=== PATIENT | female | born 1980 | race Caucasian/White ===

== ENCOUNTER 2024-02-02 18:04 | Emergency (ER) | payer OTHER, SELFPAY ==
[2024-02-02 18:06] VITALS: BP 116/73
--- NOTE | 2024-02-02 19:20 | ED.GENMED ---
History of Present Illness
<Marline Rodriguez PA-C - Last Filed: 02/03/24 00:36>
General
Chief Complaint: Throat Problem
Source: patient and records
Exam Limitations: none
Time Seen by Provider: 02/02/24 19:19
Nursing documentation reviewed up to this point in time: agreed with
Travel History
Have you had any contact with someone who has COVID-19?: No
Do you have any symptoms of coronavirus? Fever > 100 degrees, chills, cough, shortness of breath, sore throat, loss of taste or smell, muscle aches, or headache?: No
History of Present Illness
History of Present Illness:
This is a 43-year-old female with a past medical history of seizure disorder, migraines, PTSD, presenting emergency department today for throat pain for the past week. Patient states that she has seen ENT in the past for recurrent throat problems.
Patient states that she is unsure of what throat problems she has. Patient states that she thinks it may be an ulcer. Patient states that she is usually treated with what she thinks is prednisone for this and then she eventually had to have a
tonsillectomy because of this and has not had any problems with her throat after the tonsillectomy until now. Patient also notes some significant dysphagia because of pain. Patient states that even saliva swallowing will give her a lot of
discomfort. Patient denies any trouble breathing, chest pain. Patient denies any fevers or chills. Patient denies any nausea or vomiting. Patient does have a follow-up appointment scheduled on Monday with her ENT but she was in so much pain that
she could not wait until then.
Past History
<Marline Rodriguez PA-C - Last Filed: 02/03/24 00:36>
Past History
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
and hyperemesis )
ED Past Surgical History: Appendectomy, Brain (Left temporal lobectomy in January 2016 at [place] for uncontrolled epilepsy), Cholecystectomy and Other (Patient therapeutic D&E )
Social History
Tobacco: Non-smoker
Alcohol: None
Drug: None
Personal:
Living: with family
Employment: Employed (Bookkeeping/accounting)
Family History
Family History: Other (Noncontributory)
Review of Systems
<Marline Rodriguez PA-C - Last Filed: 02/03/24 00:36>
Review of Systems
All Other Systems: ROS reviewed and negative except as documented in HPI and ROS
Phy Exam
<BEATRICE Moran Last Filed: 02/03/24 00:36>
Physical Exam
Physical Exam:
Vitals: Patient's vitals are stable
General: Patient is well-appearing, in no acute distress
Skin: Warm and dry, no rashes or lesions
Head: Normocephalic, atraumatic
Eyes: EOMs intact, sclera nonicteric.
Throat: Uvula midline, surgically absent tonsils, no pharyngeal erythema.
Neck: Right sided anterior lymphadenopathy that is tender to palpation
Cardiac: Regular rate and rhythm, no murmurs
Pulm: Normal respiratory effort, no wheezes
Neuro: AAOx3. Cranial nerves II through XII intact.
Course
<Marline Rodriguez PA-C - Last Filed: 02/03/24 00:36>
Orders/Labs/Results
Orders:
Orders
02/02/24 19:57
CT Neck With Iv Contrast Urgent
Comment:
Reason For Exam: severe throat pain, dysphagia
02/02/24 19:59
IV Insert/Care/Rem.- Treatment PRN
0.9% Sodium Chloride 250 ml [Nss] 250 ml IV BOLUS
Dexamethasone Sod Phosphate [Decadron] 10 mg IV NOW STA
Ondansetron Injectable [Zofran] 4 mg IV NOW STA
Pantoprazole [Protonix IV] 40 mg IV NOW STA
02/02/24 20:33
Test Result ONCE
02/02/24 20:42
Complete Blood Count/With Diff Urgent
Comprehensive Metabolic Panel Urgent
HCG, Serum Qualitative Screen Urgent
02/02/24 20:46
0.9% Sodium Chloride 500 ml [Nss] 500 ml IV BOLUS
Abnormal Lab Results
02/02/24
20:42
MCH 32.1 H pg
(27.0-31.0)
Plt Count 453 H 10^3/uL
(130-400)
Carbon Dioxide 31 H mmol/L
(22-30)
ALT 36 H U/L
(0-35)
Alkaline Phosphatase 133 H U/L
(38-126)
02/02/24 20:42
02/02/24 20:42
Vital Signs
Initial and Last Documented VS:
Initial Vital Signs
Temp Pulse Resp BP Pulse Ox
98.9 F 84 18 116/73 97
02/02/24 18:06 02/02/24 18:06 02/02/24 18:06 02/02/24 18:06 02/02/24 18:06
Last Documented Vital Signs
Temp Pulse Resp BP Pulse Ox
98.9 F 84 18 111/67 97
02/02/24 18:06 02/02/24 18:06 02/02/24 18:06 02/02/24 22:00 02/02/24 22:15
Yvonnelt;Gil Mack, DO - Last Filed: 02/02/24 20:03>
Orders/Labs/Results
Orders:
Orders
02/02/24 19:57
CT Neck With Iv Contrast Urgent
Comment:
Reason For Exam: severe throat pain, dysphagia
02/02/24 19:59
IV Insert/Care/Rem.- Treatment PRN
0.9% Sodium Chloride 250 ml [Nss] 250 ml IV BOLUS
Dexamethasone Sod Phosphate [Decadron] 10 mg IV NOW STA
Ondansetron Injectable [Zofran] 4 mg IV NOW STA
Pantoprazole [Protonix IV] 40 mg IV NOW STA
02/02/24 20:33
Test Result ONCE
02/02/24 20:42
Complete Blood Count/With Diff Urgent
Comprehensive Metabolic Panel Urgent
HCG, Serum Qualitative Screen Urgent
02/02/24 20:46
0.9% Sodium Chloride 500 ml [Nss] 500 ml IV BOLUS
Abnormal Lab Results
02/02/24
20:42
MCH 32.1 H pg
(27.0-31.0)
Plt Count 453 H 10^3/uL
(130-400)
Carbon Dioxide 31 H mmol/L
(22-30)
ALT 36 H U/L
(0-35)
Alkaline Phosphatase 133 H U/L
(38-126)
02/02/24 20:42
02/02/24 20:42
Vital Signs
Initial and Last Documented VS:
Initial Vital Signs
Temp Pulse Resp BP Pulse Ox
98.9 F 84 18 116/73 97
02/02/24 18:06 02/02/24 18:06 02/02/24 18:06 02/02/24 18:06 02/02/24 18:06
Last Documented Vital Signs
Temp Pulse Resp BP Pulse Ox
98.9 F 84 18 111/67 97
02/02/24 18:06 02/02/24 18:06 02/02/24 18:06 02/02/24 22:00 02/02/24 22:15
gay;BEATRICE Moran Last Filed: 02/03/24 00:36>
MDM/Problems Addressed
Differential Diagnosis Includes:
Differentials include retropharyngeal abscess, viral pharyngitis, Darrion's angina, epiglottitis
MDM/Problems Addressed:
Sore throat
Chronic conditions affecting care: Other (Seizure disorder, migraine disorder, IBS, PTSD)
<Marline Rodriguez PA-C - Last Filed: 02/03/24 00:36>
*Pulse Oximetry
Patient hypoxic: no
*Critical Care Note
Total Time (30-74mins, 75-104mins- exclusive of procedures): Not Applicable
Data Reviewed
Review of Other/Old Records Reveals: Records (Reviewed ER physician documentation from 03/17/2022) and Discharge Summary (No discharge summaries in [facility] to review)
Source: patient and records
<Marline Rodriguez PA-C - Last Filed: 02/03/24 00:36>
Patient Management
Escalation/DeEscalation of care consider admission/obs:
This is a 43-year-old female with a past medical history of seizure disorder, migraines, PTSD, presenting emergency department today for throat pain for the past week. Patient has an apparent history of a unknown throat condition for which she sees
an ENT for and is usually treated with prednisone for this. Patient unable to recall the name of this condition at this time. Here in emergency department, her vital signs are stable exam reveals right-sided anterior cervical lymphadenopathy with
no pharyngeal erythema, uvula midline. Her CBC and CMP are within normal limits. Her CT of the neck demonstrates soft tissue fullness at the right piriform sinus and mild thickening of the right aryepiglottic fold. ENT on-call was consulted who
recommended outpatient discharge with a short prednisone burst as well as coverage with Augmentin and close outpatient follow-up. Considering patient does have follow-up appointment, patient was sent home with a prednisone burst and a course of
Augmentin. Patient symptoms did improve with the steroids and she feels better. Patient will follow-up. Return precautions given, patient stable for discharge.
ED Attending Note
<Marline Rodriguez PA-C - Last Filed: 02/03/24 00:36>
-
Portions of this chart may have been created with voice recognition software.� Occasional wrong word or��sound alike� substitutions may have occurred due to the inherent limitations of voice recognition software.
<Gil Mack DO - Last Filed: 02/02/24 20:03>
ED Attending Note
Patient seen and examined by attending physician: Yes
I performed a history and physical exam of patient and discussed management with resident, I reviewed resident's note and agree with documented findings and plan of care.: Yes
ED Attending Note:
I have reviewed and agree with history and treatment plan by Marline Rodriguez. My exam revealed 43 yo female with right-sided lymphadenopathy tender. Pain with swallowing, unclear etiology and concern for deep space infection. Will evaluate with
CT IV contrast of neck.
Discharge Plan
Departure
Patient Disposition: Home (Routine Discharge)
Date of Disposition: 02/02/24
Time of Disposition: 22:08
Patient with high blood pressure during this ER visit?: No
Condition: Good
Discharge Problem:
Sore throat
Instructions: Sore Throat, Adult (DC), Dysphagia (DC)
Prescriptions:
New
prednisone 20 mg tablet
40 mg PO DAILY 5 Days Qty: 10 0RF
amoxicillin-pot clavulanate 875-125 mg tablet
1 tab PO BID 7 Days Qty: 14 0RF
No Action
lacosamide [Vimpat] 100 MG tablet
100 mg PO BID
vitamin B complex 1 EACH tablet
1 ea PO .QWEEKLY
omega-3 fatty acids-fish oil [Fish Oil] 1,000 MG capsule
1 cap PO DAILY
cholecalciferol (vitamin D3) 2,000 UNIT tablet
2,000 unit PO DAILY
ondansetron [Zofran ODT] 8 MG tablet,disintegrating
8 mg PO TIDPRN PRN (Reason: vomiting) Qty: 10 0RF
hydrocodone-acetaminophen [Vicodin] 1 EACH tablet
1 ea PO Q6HPRN PRN (Reason: pain) Qty: 14 0RF
promethazine [Promethegan] 25 MG suppository
25 mg [place] Q6HPRN PRN (Reason: nausea/vomiting) Qty: 25 0RF
prednisone 20 MG tablet
20 mg PO BID Qty: 10 0RF
prednisone 20 MG tablet
20 mg PO BID Qty: 10 0RF
promethazine [Promethegan] 25 MG suppository
25 mg [place] Q6HPRN PRN (Reason: nausea/vomiting) Qty: 25 0RF
phenazopyridine 200 MG tablet
200 mg PO TID PRN (Reason: pain) Qty: 12 0RF
cefdinir 300 MG capsule
300 mg PO BID Qty: 13 0RF
Referrals:
Mariajose Garcia DO [Family Provider] -
Activity Restrictions/Additional Instructions:
Please follow up with your ENT as scheduled on Monday.
We have sent Augmentin, an antibiotic to your pharmacy. Please take one tablet twice daily for 7 days.
We have also sent Prednisone to your pharmacy. Please take two tablets once daily for 4 days (for a total of 40 mg per day).
Please return to the emergency department should you experience fevers or chills, chest pain, shortness of breath, or any other concerning signs or symptoms.
Interventions
Interventions:
*Risk Screen - Suicide Last Done: 02/02/24 18:08
*General Assessment Last Done: 02/02/24 18:08
*Neglect/Abuse Screening Last Done: 02/02/24 18:08
ED- Fall Risk Assessment Last Done: 02/02/24 20:24
*ED COVID-19 Vaccine History Last Done: 02/02/24 20:24
*Nursing Disposition Last Done: 02/02/24 22:59
ED-EENT Assessment Last Done: 02/02/24 20:24
ED- Pulmonary Assessment Last Done: 02/02/24 20:24
Discharge Date and Time
Discharge Date/Time: 02/02/24 22:59
Print Language: [place] CITIZEN
[2024-02-02 20:24] VITALS: BMI 31.5
[2024-02-02 20:27] VITALS: BP 112/74
[2024-02-02] MEDS: NSS 500 IV (20:46)
[2024-02-02] MEDS: ZOFRAN 4 MG IV (20:48)
[2024-02-02 20:49] LABS: % Basophils 1.3 % (0-2); % Eosinophils 0.6 % (0-6); % Immature Granulocytes 0.1 % (0-0.5); % Lymphocytes 32.7 % (20.5-51.1); % Neutrophils 57.3 % (42.2-75.2); Absolute Basophils 0.1 10^3/uL (0-0.2); Absolute Lymphocytes 2.3 10^3/uL (1.2-3.4); Absolute Monocytes 0.6 10^3/uL (0.1-0.6); Absolute Neutrophils 4.1 10^3/uL (1.4-6.5); Hematocrit 44.5 % (37.0-47.0); Hemoglobin 15.4 g/dL (12.0-16.0); Mean Corp Hgb Conc. 34.6 g/dL (33.0-37.0); Mean Corpuscular Hgb 32.1 pg (27.0-31.0); Mean Corpuscular Volume 92.7 fL (81.0-99.0); Nucleated Red Blood Cells % 0 %; Platelet Count 453 10^3/uL (130-400); Red Cell Dist. Width 12.7 % (11.5-14.5); White Blood Cell Count 7.1 10^3/uL (4.8-10.8)
[2024-02-02] MEDS: DECADRON 10 MG IV (20:49)
[2024-02-02] MEDS: PROTONIX IV 40 MG IV (20:52)
[2024-02-02 21:00] VITALS: BP 118/74
[2024-02-02 21:03] LABS: ALT (SGPT) 36 U/L (0-35); AST (SGOT) 22 U/L (14-36); Albumin 4.7 g/dl (3.5-5.0); Alkaline Phosphatase 133 U/L (38-126); Blood Urea Nitrogen 10 mg/dl (7-17); Calcium 9.7 mg/dl (8.4-10.2); Carbon Dioxide 31 mmol/L (22-30); Chloride 99 mmol/L (98-107); Estimated Creatinine Clearance 105 ml/min; Glucose 83 mg/dl (70-99); Sodium 135 mmol/L (135-145); Total Bilirubin 0.6 mg/dl (0.2-1.3); Total Protein 8.1 g/dl (6.3-8.2); eGFR > 60.00
[2024-02-02 21:04] LABS: HCG, Serum Qualitative Screen Negative
[2024-02-02 22:00] VITALS: BP 111/67
== END 2024-02-02 22:59 | disposition home or self-care (01) ==
LOC: EMR 18:04
PROVIDERS: Physician Assistant; EMERGENCY PHYSICIAN Emergency Medicine; FAMILY PHYSICIAN Family Medicine
DX: J02.9 Acute pharyngitis, unspecified (principal); R13.10 Dysphagia, unspecified; R59.0 Localized enlarged lymph nodes; R56.9 Unspecified convulsions; F43.10 Post-traumatic stress disorder, unspecified; G43.909 Migraine, unspecified, not intractable, without status migrainosus; K58.9 Irritable bowel syndrome, unspecified; D68.59 Other primary thrombophilia; Z87.442 Personal history of urinary calculi; Z90.49 Acquired absence of other specified parts of digestive tract
CPT/HCPCS: 99285; 96361; 96374; 96375 ×2; 70491; 80053; 84703; 85025; Q9967

== ENCOUNTER 2025-03-04 17:20 | Emergency (ER) | payer OTHER, SELFPAY ==
[2025-03-04 17:22] VITALS: BP 137/85
[2025-03-04 17:44] LABS: % Basophils 0.6 % (0-2); % Eosinophils 2.2 % (0-6); % Immature Granulocytes 0.1 % (0-0.5); % Lymphocytes 24.5 % (20.5-51.1); % Monocytes 11.2 % (1.7-9.3); % Neutrophils 61.4 % (42.2-75.2); Absolute Eosinophils 0.2 10^3/uL (0-0.7); Absolute Lymphocytes 1.7 10^3/uL (1.2-3.4); Absolute Monocytes 0.8 10^3/uL (0.1-0.6); Absolute Neutrophils 4.3 10^3/uL (1.4-6.5); Hematocrit 38.5 % (37.0-47.0); Hemoglobin 13.3 g/dL (12.0-16.0); Mean Corp Hgb Conc. 34.5 g/dL (33.0-37.0); Mean Corpuscular Hgb 33.1 pg (27.0-31.0); Mean Corpuscular Volume 95.8 fL (81.0-99.0); Mean Platelet Volume 8.5 fL (7.4-10.4); Nucleated Red Blood Cells % 0 %; Platelet Count 416 10^3/uL (130-400); Red Blood Cell Count 4.02 10^6/uL (4.20-5.40); Red Cell Dist. Width 12.4 % (11.5-14.5)
[2025-03-04 17:52] LABS: HCG, Serum Qualitative Screen Negative
[2025-03-04 17:56] LABS: ALT (SGPT) 13 U/L (0-35); AST (SGOT) 17 U/L (14-36); Albumin 4.3 g/dl (3.5-5.0); Alkaline Phosphatase 90 U/L (38-126); Blood Urea Nitrogen 5 mg/dl (7-17); Calcium 8.9 mg/dl (8.4-10.2); Carbon Dioxide 27 mmol/L (22-30); Chloride 107 mmol/L (98-107); Glucose 84 mg/dl (70-99); Potassium 3.7 mmol/L (3.5-5.1); Sodium 138 mmol/L (135-145); Total Bilirubin 0.5 mg/dl (0.2-1.3); Total Protein 6.8 g/dl (6.3-8.2); eGFR > 60.00
[2025-03-04 23:01] VITALS: BP 123/77
[2025-03-04 23:06] VITALS: BP 123/77
--- NOTE | 2025-03-04 23:17 | ED.GENMED ---
History of Present Illness
<Marline Rodriguez PA-C - Last Filed: 03/05/25 05:32>
General
Chief Complaint: Throat Problem
Source: patient
Exam Limitations: none
Time Seen by Provider: 03/04/25 22:49
Nursing documentation reviewed up to this point in time: agreed with
History of Present Illness
History of Present Illness:
This is a 44-year-old female with past medical history of IBS, PTSD, migraines, HSV esophagitis, presents emergency department today with concerns of difficulty swallowing for the past 3 days. Patient reports that this started on Monday night with
trouble swallowing and feelings of facial congestion and stuffy nose. Patient reports that the next morning she felt generally unwell and states that the difficulty swallowing got worse. Patient also feels fullness to the right anterior neck. She
states that she follows with Dr. Aníbal Arrednodo from [facility]. She had a tonsillectomy in the past. Patient denies any fevers or chills, nausea or vomiting. She notes a decreased appetite. Patient states that this feels similar to when she
has had HSV esophagitis in the past and had ulcers in her throat. Patient states that she is usually treated with prednisone for this. Patient is up-to-date on her vaccinations. She denies any sick contacts. [facility] a
few days ago and they did viral testing which was negative and they told her that she had a virus
Past History
<Marline Rodriguez PA-C - Last Filed: 03/05/25 05:32>
Past History
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
and hyperemesis )
ED Past Surgical History: Appendectomy, Brain (Left temporal lobectomy in January 2016 at [place] for uncontrolled epilepsy), Cholecystectomy and Other (Patient therapeutic D&E )
Social History
Tobacco: Non-smoker
Alcohol: None
Drug: None
Personal:
Living: with family
Employment: Employed (Bookkeeping/accounting)
Family History
Family History: Other (Noncontributory)
Review of Systems
<Marline Rodriguez PA-C - Last Filed: 03/05/25 05:32>
Review of Systems
All Other Systems: ROS reviewed and negative except as documented in HPI and ROS
Phy Exam
<Marline Rodriguez PA-C - Last Filed: 03/05/25 05:32>
Physical Exam
Physical Exam:
General: Patient is well appearing and in no acute distress; non-toxic
Skin: Warm and dry, no rashes or lesions
Head: Normocephalic, atraumatic
Eyes: Sclera non-icteric. EOMs intact.
Throat: Uvula midline, no pharyngeal erythema, no cervical lymphadenopathy
Cardiac: Regular rate and rhythm, no murmur
Peripheral Vascular: No lower extremity swelling or edema
Pulm: Normal respiratory effort, no wheezes, rales, rhonchi
Neuro: CN II-XII intact, no focal neurologic deficits.
Psychiatric: Appropriate mood and affect.
Course
<Marline Rodriguez PA-C - Last Filed: 03/05/25 05:32>
Orders/Labs/Results
Orders:
Orders
03/04/25 17:25
Test Result ONCE
03/04/25 17:32
Complete Blood Count/With Diff Urgent
Comprehensive Metabolic Panel Urgent
HCG, Serum Qualitative Screen Urgent
03/04/25 23:15
CT Neck With Iv Contrast Urgent
Comment:
Reason For Exam: dysphagia, throat pain
03/04/25 23:16
0.9% Sodium Chloride 500 ml [Nss] 500 ml IV BOLUS
Dexamethasone Sod Phosphate [Decadron] 10 mg IV NOW STA
03/05/25 01:15
Rapid Strep Group A Urgent
ANJU Source: Throat/Pharynx
Specimen Description:
Date Specimen was Collected: 03/05/25
Time Specimen was Collected: 01:08
Throat Culture [Throat Culture, Comprehensive] Urgent
ANJU Source: Throat/Pharynx
Specimen Description:
Date Specimen was Collected: 03/05/25
Time Specimen was Collected: 01:08
Abnormal Lab Results
03/04/25
17:32
RBC 4.02 L 10^6/uL
(4.20-5.40)
MCH 33.1 H pg
(27.0-31.0)
Plt Count 416 H 10^3/uL
(130-400)
Absolute Monos (auto) 0.8 H 10^3/uL
(0.1-0.6)
Monocytes % 11.2 H %
(1.7-9.3)
BUN 5 L mg/dl
(7-17)
03/04/25 17:32
03/04/25 17:32
Vital Signs
Initial and Last Documented VS:
Initial Vital Signs
Temp Pulse Resp BP Pulse Ox
98.3 F 79 16 137/85 99
03/04/25 17:22 03/04/25 17:22 03/04/25 17:22 03/04/25 17:22 03/04/25 17:22
Last Documented Vital Signs
Temp Pulse Resp BP Pulse Ox
98 F 89 16 121/70 99
03/05/25 00:25 03/05/25 00:25 03/05/25 00:25 03/05/25 00:25 03/05/25 00:30
<Lavon Chacon MD - Last Filed: 03/05/25 01:17>
Orders/Labs/Results
Orders:
Orders
03/04/25 17:25
Test Result ONCE
03/04/25 17:32
Complete Blood Count/With Diff Urgent
Comprehensive Metabolic Panel Urgent
HCG, Serum Qualitative Screen Urgent
03/04/25 23:15
CT Neck With Iv Contrast Urgent
Comment:
Reason For Exam: dysphagia, throat pain
03/04/25 23:16
0.9% Sodium Chloride 500 ml [Nss] 500 ml IV BOLUS
Dexamethasone Sod Phosphate [Decadron] 10 mg IV NOW STA
03/05/25 01:15
Rapid Strep Group A Urgent
ANJU Source: Throat/Pharynx
Specimen Description:
Date Specimen was Collected: 03/05/25
Time Specimen was Collected: 01:08
Throat Culture [Throat Culture, Comprehensive] Urgent
ANJU Source: Throat/Pharynx
Specimen Description:
Date Specimen was Collected: 03/05/25
Time Specimen was Collected: 01:08
Abnormal Lab Results
03/04/25
17:32
RBC 4.02 L 10^6/uL
(4.20-5.40)
MCH 33.1 H pg
(27.0-31.0)
Plt Count 416 H 10^3/uL
(130-400)
Absolute Monos (auto) 0.8 H 10^3/uL
(0.1-0.6)
Monocytes % 11.2 H %
(1.7-9.3)
BUN 5 L mg/dl
(7-17)
03/04/25 17:32
03/04/25 17:32
Vital Signs
Initial and Last Documented VS:
Initial Vital Signs
Temp Pulse Resp BP Pulse Ox
98.3 F 79 16 137/85 99
03/04/25 17:22 03/04/25 17:22 03/04/25 17:22 03/04/25 17:22 03/04/25 17:22
Last Documented Vital Signs
Temp Pulse Resp BP Pulse Ox
98 F 89 16 121/70 99
03/05/25 00:25 03/05/25 00:25 03/05/25 00:25 03/05/25 00:25 03/05/25 00:30
<Marline Rodriguez PA-C - Last Filed: 03/05/25 05:32>
MDM/Problems Addressed
Differential Diagnosis Includes:
Differentials include retropharyngeal abscess,, viral pharyngitis, HSV esophagitis, epiglottitis
MDM/Problems Addressed:
44-year-old female presents emergency department today with concerns of difficulty swallowing and a sore throat. Feels similar to when she has had HSV esophagitis in the past. Patient is requesting a scope of her throat. She also notes some right
anterior neck pain. Cannot rule out retropharyngeal abscess. Will give dose of Decadron IV fluids and will obtain CT scan of the neck with IV contrast
CT scan reveals cervical lymphadenopathy but no deep space infection, no epiglottitis. Throat culture sent off. Strep negative. Considering patient states that this feels like HSV esophagitis, will initiate antivirals. Advised patient to follow up
with her ENT.
<Marline Rodriguez PA-C - Last Filed: 03/05/25 05:32>
*Critical Care Note
Total Time (30-74mins, 75-104mins- exclusive of procedures): Not Applicable
ED Attending Note
<Marline Rodriguez PA-C - Last Filed: 03/05/25 05:32>
-
Portions of this chart may have been created with voice recognition software.� Occasional wrong word or��sound alike� substitutions may have occurred due to the inherent limitations of voice recognition software.
<Lavon Chacon MD - Last Filed: 03/05/25 01:17>
ED Attending Note
Patient seen and examined by attending physician: Yes
I performed the substantive portion of visit, reviewed & personally made and approve the management plan that is documented in note by myself or VERITO.: Yes
ED Attending Note:
44-year-old female complaining of swallowing issues for days. History of HSV. Diagnosed by your ENT physician. No fever no inability to swallow no shortness of breath no other complaints.
On exam patient is nontoxic in no distress. Speech is normal. No drooling no stridor no trismus. No neck swelling. Pharynx with no significant erythema. No exudate. No tonsillar abscess. No respiratory distress.
Dysphagia by history. History of HSV. Discussed covering with antivirals with the patient which she is comfortable with. Check strep and rapid strep for completeness. If negative no indication for antibiotics.
Discharge Plan
Departure
Patient Disposition: Home (Routine Discharge)
Date of Disposition: 03/05/25
Time of Disposition: 01:44
Patient with high blood pressure during this ER visit?: Yes
Condition: Good
Discharge Problem:
Throat pain, Dysphagia
Instructions: Dysphagia (DC), BLOOD PRESSURE
Prescriptions:
New
famciclovir 500 mg tablet
500 mg PO Q8H 7 Days Qty: 21 0RF
No Action
lacosamide [Vimpat] 100 MG tablet
100 mg PO BID
vitamin B complex 1 EACH tablet
1 ea PO .QWEEKLY
omega-3 fatty acids-fish oil [Fish Oil] 1,000 MG capsule
1 cap PO DAILY
cholecalciferol (vitamin D3) 2,000 UNIT tablet
2,000 unit PO DAILY
ondansetron [Zofran ODT] 8 MG tablet,disintegrating
8 mg PO TIDPRN PRN (Reason: vomiting) Qty: 10 0RF
hydrocodone-acetaminophen [Vicodin] 1 EACH tablet
1 ea PO Q6HPRN PRN (Reason: pain) Qty: 14 0RF
promethazine [Promethegan] 25 MG suppository
25 mg [place] Q6HPRN PRN (Reason: nausea/vomiting) Qty: 25 0RF
prednisone 20 MG tablet
20 mg PO BID Qty: 10 0RF
prednisone 20 MG tablet
20 mg PO BID Qty: 10 0RF
promethazine [Promethegan] 25 MG suppository
25 mg [place] Q6HPRN PRN (Reason: nausea/vomiting) Qty: 25 0RF
phenazopyridine 200 MG tablet
200 mg PO TID PRN (Reason: pain) Qty: 12 0RF
cefdinir 300 MG capsule
300 mg PO BID Qty: 13 0RF
prednisone 20 mg tablet
40 mg PO DAILY 5 Days Qty: 10 0RF
amoxicillin-pot clavulanate 875-125 mg tablet
1 tab PO BID 7 Days Qty: 14 0RF
Referrals:
Mariajose Garcia DO [Family Provider] -
Activity Restrictions/Additional Instructions:
Famciclovir, an antiviral medication, has been sent to your pharmacy. Please take 1 tablet every 8 hours for 7 days. Please call your ENT tomorrow to schedule follow-up appointment.
You tested negative for strep. Your throat culture is pending
Please return emergency department for new or worsening symptoms. Please follow-up with your primary care provider.
Interventions
Interventions:
*Risk Screen - Suicide Last Done: 03/04/25 17:25
*General Assessment Last Done: 03/04/25 23:37
*Neglect/Abuse Screening Last Done: 03/04/25 17:25
*ED- Fall Risk Assessment Last Done: 03/05/25 02:20
*ED COVID-19 Vaccine History Last Done: 03/05/25 02:20
*Nursing Disposition Last Done: 03/05/25 02:22
ED-EENT Assessment Last Done: 03/04/25 23:10
ED- Pulmonary Assessment Last Done: 03/04/25 23:10
Discharge Date and Time
Discharge Date/Time: 03/05/25 02:23
Print Language: YI
[2025-03-04] MEDS: NSS 500 IV (23:29)
[2025-03-04] MEDS: DECADRON 10 MG IV (23:29)
[2025-03-04 23:33] VITALS: BMI 26.6
[2025-03-05 00:25] VITALS: BP 121/70
== END 2025-03-05 02:23 | disposition home or self-care (01) ==
LOC: EMR 17:20
PROVIDERS: Student in an Organized Health Care Education/Training Program; EMERGENCY PHYSICIAN Emergency Medicine; FAMILY PHYSICIAN Family Medicine
DX: R07.0 Pain in throat (principal); R13.10 Dysphagia, unspecified; K58.9 Irritable bowel syndrome, unspecified; F43.10 Post-traumatic stress disorder, unspecified; K20.90 Esophagitis, unspecified without bleeding; D68.59 Other primary thrombophilia; Z87.442 Personal history of urinary calculi; Z90.49 Acquired absence of other specified parts of digestive tract
CPT/HCPCS: 99284; 96374; 96361; 70491; 80053; 84703; 85025; 87070; 87880; Q9967